=== PATIENT | male | born 1945 | race Caucasian/White ===

== ENCOUNTER → 2021-05-21 14:42 | Outpatient (BNVA) | payer MEDICARE, SELFPAY | PROVIDERS: PCP Internal Medicine; Visit Provider Nurse Practitioner Family | DX: R56.9 Unspecified convulsions (principal); E87.1 Hypo-osmolality and hyponatremia; M54.50 Low back pain, unspecified | CPT/HCPCS: 99202 ==

== ENCOUNTER → 2021-11-26 10:48 | Outpatient (BNVA) | payer MEDICARE, OTHER, SELFPAY | PROVIDERS: PCP Internal Medicine; Visit Provider Nurse Practitioner Family | DX: R56.9 Unspecified convulsions (principal); M54.50 Low back pain, unspecified; E87.1 Hypo-osmolality and hyponatremia | CPT/HCPCS: 99212 ==

== ENCOUNTER → 2022-06-02 10:45 | Outpatient (BNVA) | payer MEDICARE, OTHER, SELFPAY | PROVIDERS: PCP Internal Medicine; Visit Provider Nurse Practitioner Family | DX: M54.50 Low back pain, unspecified (principal); R56.9 Unspecified convulsions | CPT/HCPCS: 99212 ==

== ENCOUNTER 2022-12-02 10:46 | Outpatient (AMB) | payer MEDICARE, OTHER, SELFPAY ==
--- NOTE | 2022-12-02 10:48 | MHC.OFFVIS ---
Intake Vital Signs 12/02/22 10:51 Height 5 ft 8 in Weight 170 lb BMI 25.8 BP 118/82 Blood Pressure Location Rt brachial Position Sitting Pulse 74 Pulse Source Pulse Oximeter Pulse Oximetry (%) 98 Oxygen Delivery Method Room Air Intake Visit Reasons: 6m follow up Intake Note: Patient presents for 6 month follow up. Patient states no issues or concerns today. Allergies primidone [From Mysoline] Allergy (Mild, Verified 12/02/22 10:52) Rash oxycodone [From Percocet] Adverse Reaction (Mild, Verified 12/02/22 10:52) Gastrointestinal Upset Sulfa (Sulfonamide Antibiotics) Adverse Reaction (Mild, Verified 12/02/22 10:52) Gastrointestinal Upset Medication List - Last Reconciled 12/02/22 by ENA Jenkins acetaminophen ER 650 mg PO Q8H PRN amitriptyline 20 mg PO BEDTIME amlodipine 10 mg PO DAILY atorvastatin 20 mg PO DAILY clonazepam 1 mg PO prn seizure lasting > 2 minutes, may repeat x's 1 PRN; 30 days cyanocobalamin (vitamin B-12) (Vitamin B-12) 1,000 mcg PO DAILY fluticasone propionate 50 mcg/actuation sprays intranasal gabapentin 100 mg PO BID levetiracetam 1,500 mg (3 x 500 mg) PO BID 90 days magnesium 250 mg PO DAILY melatonin mg PO .qhs meloxicam 7.5 mg PO DAILY PRN omega 8-nrg-omj-fish oil 120-180-500 mg (Fish Oil) caps PO DAILY omeprazole 20 mg PO DAILY tamsulosin 0.8 mg PO DAILY vitamins A and D 1 cap PO DAILY HPI HPI Comments History of Present Illness Details 77-yr-old male presents for f/u visit. Pt denies any significant interval medical changes. Pt denies any inetrval sieuzre activity. He is compliant w/ Keppra. He does not drive. His low back pain has subsided. He states Gabapentin is helpful. He states the vascular work-up for LLE swelling was non-diagnostic- he has been wearing compression socks which have been helpful. [facility] Medical History (Updated 12/02/22 @ 11:30 by ENA Jenkins) Left leg swelling HTN (hypertension) Depression Asthma Surgical History S/P spinal surgery History of ankle surgery Hx of hand surgery Hx of cervical spine surgery Family History Sister Lung cancer Daughter Asthma Social History Alcohol intake: never Patient Tobacco Use Status: Former Tobacco user Review of Systems Const All systems reviewed & are unremarkable except as noted in HPI and below Physical Exam Vital Signs: Last Vital Signs Pulse 74 12/02/22 10:51 BP 118/82 12/02/22 10:51 Pulse Ox 98 12/02/22 10:51 Oxygen Delivery Method Room Air 12/02/22 10:51 BMI result Body Mass Index 25.8 Const General: cooperative and no acute distress Orientation/consciousness: patient oriented x3 HEENT Head: Yes normocephalic Resp Effort & Inspection: normal respiratory effort and able to speak in complete sentences Neuro Other: Slow to stand, slow steady gait w/ cane General: patient oriented x3 and CN's II-XI intact bilaterally Cognition (Neuro): normal cognition Motor exam (neuro): 5/5 motor strength present throughout Psych Appearance: grossly normal Mental Status: mental status grossly normal Speech and movement: Normal speech and movement present Affect: normal affect Attitude: cooperative Thought process: Normal thought process present Thought content: Normal thought content present Insight: Good insight present (Psych) Judgement: Good judgement present (Psych) Assessment & Plan Assessment & Plan (1) Seizure: Code(s): R56.9 - Unspecified convulsions (2) Low back pain: Code(s): M54.50 - Low back pain, unspecified Plan Continue Keppra 1,500mg bid. Continue Gabapentin Continue Amitriptyline Pt does NOT drive. Monitor low back pain- pt to let us know if any worsening s/s. Will request recent labs from PCP. ? f/u in 11-12 months or sooner prn. Medications: Refilled levetiracetam 1,500 mg (3 x 500 mg) PO BID 90 days 540 tabs 3RF Coding Level of Care Code Est Pt Level 4 (00791) Diagnoses Seizure R56.9 Low back pain M54.50
[2022-12-02 10:51] VITALS: BP 118/82; PULSE 74; O2SAT 98; BMI 25.8
== END 2022-12-02 11:24 | disposition home or self-care (01) ==
PROVIDERS: Visit Provider Nurse Practitioner Family
DX: R56.9 Unspecified convulsions (principal); M54.50 Low back pain, unspecified
CPT/HCPCS: 99214

== ENCOUNTER → 2022-12-02 10:46 | Outpatient (BNVA) | payer MEDICARE, OTHER, SELFPAY | PROVIDERS: Visit Provider Nurse Practitioner Family | DX: M54.50 Low back pain, unspecified (principal); R56.9 Unspecified convulsions | CPT/HCPCS: 99212 ==

== ENCOUNTER 2023-11-10 10:50 | Outpatient (AMB) | payer MEDICARE, OTHER, SELFPAY ==
--- NOTE | 2023-11-10 10:52 | MHC.OFFVIS ---
Vital Signs 11/10/23 11:00 Height 5 ft 8 in Weight 168 lb 6 oz BMI 25.6 BP 110/74 Blood Pressure Location Rt brachial Position Sitting Intake Visit Reasons: 1 yr f/u appt for epilepsy Intake Note: Patient presents for follow up. Allergies primidone [From Mysoline] Allergy (Mild, Verified 11/10/23 11:01) Rash oxycodone [From Percocet] Adverse Reaction (Mild, Verified 11/10/23 11:01) Gastrointestinal Upset Sulfa (Sulfonamide Antibiotics) Adverse Reaction (Mild, Verified 11/10/23 11:01) Gastrointestinal Upset Medication List - Last Reconciled 11/10/23 by ENA Jenkins acetaminophen ER 650 mg PO Q8H PRN amitriptyline 20 mg PO BEDTIME amlodipine 10 mg PO DAILY atorvastatin 20 mg PO DAILY clonazepam 1 mg PO prn seizure lasting > 2 minutes, may repeat x's 1 PRN; 30 days cyanocobalamin (vitamin B-12) (Vitamin B-12) 1,000 mcg PO DAILY fluticasone propionate 50 mcg/actuation sprays intranasal gabapentin 100 mg PO BID levetiracetam 1,500 mg (3 x 500 mg) PO BID 90 days magnesium 250 mg PO DAILY melatonin mg PO .qhs meloxicam 7.5 mg PO DAILY PRN omega 5-zlh-cat-fish oil 120-180-500 mg (Fish Oil) caps PO DAILY omeprazole 20 mg PO DAILY tamsulosin 0.8 mg PO DAILY vitamins A and D 1 cap PO DAILY HPI Comments Details: 78-yr-old female presents for f/u visit. Pt denies any significant interval medical changes. Pt denies any interval seizure activity. He is compliant w/ Keppra. He does not drive. Last CMP- WNL. His low back pain continues but no longer having back pain when getting up form bed. He is trying to exercise/walk regularly- partly as he was informed he was pre-diabetic. Gabapentin is helpful. He has been able to lower his Amitriptyline dose to 10mg qhs. [facility] Medical History Left leg swelling HTN (hypertension) Depression Asthma Surgical History S/P spinal surgery History of ankle surgery Hx of hand surgery Hx of cervical spine surgery Family History Sister Lung cancer Daughter Asthma Social History Alcohol intake: never Patient Tobacco Use Status: Former Tobacco user Physical Exam Vital Signs: Last Vital Signs BP 110/74 11/10/23 11:00 BMI result Body Mass Index 25.6 Const General: cooperative and no acute distress Orientation/consciousness: patient oriented x3 Resp Effort & Inspection: normal respiratory effort and able to speak in complete sentences Neuro Other: Slow to stand, steady gait w/ cane General: patient oriented x3 Cranial nerves: Yes CN's II-XII intact bilaterally Cognition (Neuro): normal cognition Psych Appearance: grossly normal Mental Status: mental status grossly normal Speech and movement: Normal speech and movement present Affect: normal affect Attitude: cooperative Assessment & Plan Assessment & Plan (1) Seizure: Code(s): R56.9 - Unspecified convulsions Category: Medical (2) Hyponatremia: Comment: resolved- off Trileptal Code(s): E87.1 - Hypo-osmolality and hyponatremia Category: Medical (3) Low back pain: Code(s): M54.50 - Low back pain, unspecified Category: Medical Plan Continue Keppra 1,500mg bid. Continue Gabapentin Continue Amitriptyline Will refill Clonazepam 2mg ODT for breakrthough seizure- previous supply . Recheck CBC/CMP- pt may do w/ next scheduled lab orderer from PCP. Pt does NOT drive. Continue regular physical activity as tolerated. Monitor low back pain- pt to let us know if any worsening s/s. f/u in 12 months or sooner prn. Orders: Orders Complete Blood Count Auto Diff Today R56.9 - Unspecified convulsions Comprehensive Met. Panel Today R56.9 - Unspecified convulsions Medications: Changed From amitriptyline 20 mg PO BEDTIME To amitriptyline 10 mg PO BEDTIME Refilled clonazepam 1 mg PO prn seizure lasting > 2 minutes, may repeat x's 1 PRN; 30 days 5 tabs 1RF seizure activity levetiracetam 1,500 mg (3 x 500 mg) PO BID 90 days 540 tabs 3RF Coding Level of Care Code Est Pt Level 4 (24810) Diagnoses Seizure R56.9 Hyponatremia E87.1 Low back pain M54.50
[2023-11-10 11:00] VITALS: BP 110/74; BMI 25.6
== END 2023-11-10 11:55 | disposition home or self-care (01) ==
PROVIDERS: PCP Internal Medicine; Visit Provider Nurse Practitioner Family
DX: R56.9 Unspecified convulsions (principal); E87.1 Hypo-osmolality and hyponatremia; M54.50 Low back pain, unspecified
CPT/HCPCS: 99214

== ENCOUNTER → 2023-11-10 10:50 | Outpatient (BNVA) | payer MEDICARE, OTHER, SELFPAY | PROVIDERS: PCP Internal Medicine; Visit Provider Nurse Practitioner Family | DX: R56.9 Unspecified convulsions (principal); E87.1 Hypo-osmolality and hyponatremia; M54.50 Low back pain, unspecified | CPT/HCPCS: 99212 ==

== ENCOUNTER 2024-11-09 10:45 | Outpatient (AMB) | payer MEDICARE, OTHER, SELFPAY ==
[2024-11-09 10:48] VITALS: BP 120/60; PULSE 74; O2SAT 98; BMI 26.8
--- NOTE | 2024-11-09 10:48 | A.OFFVIS_ITS ---
Vital Signs 11/09/24 10:48 Height 5 ft 8 in Weight 176 lb BMI 26.8 BP 120/60 Blood Pressure Location Rt brachial Position Sitting Pulse 74 Pulse Source Pulse Oximeter Pulse Oximetry (%) 98 Oxygen Delivery Method Room Air Intake Visit Reasons: Follow Up 1yr Intake Note: Patient presents for follow up. 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 Accompanied by: Self / Same As Patient Allergies primidone (From Mysoline) Allergy (Mild, Verified 11/09/24 10:52) Rash oxycodone (From Percocet) Adverse Reaction (Mild, Verified 11/09/24 10:52) Gastrointestinal Upset Sulfa (Sulfonamide Antibiotics) Adverse Reaction (Mild, Verified 11/09/24 10:52) Gastrointestinal Upset Medication List - Last Reconciled 11/09/24 by ENA Jenkins acetaminophen ER 650 mg PO Q8H PRN amitriptyline 10 mg PO BEDTIME amlodipine 10 mg PO DAILY atorvastatin 20 mg PO DAILY clonazepam 1 mg PO prn seizure lasting > 2 minutes, may repeat x's 1 PRN; 30 d ays cyanocobalamin (vitamin B-12) (Vitamin B-12) 1,000 mcg PO DAILY fluticasone propionate 50 mcg/actuation sprays intranasal gabapentin 100 mg PO BID levetiracetam 1,500 mg (3 x 500 mg) PO BID 90 days magnesium 250 mg PO DAILY melatonin mg PO .qhs meloxicam 7.5 mg PO DAILY PRN nicotinamide mononucleotide 500 mg PO BID omega 7-xjx-xgt-fish oil 120-180-500 mg (Fish Oil) caps PO DAILY omeprazole 20 mg PO DAILY tamsulosin 0.8 mg PO DAILY vitamins A and D 1 cap PO DAILY HPI Comments Details: 79-yr-old female presents for follow-up for seizure. 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 He has been started on OTC nicotinamide 500 mg b.i.d. and is scheduled to begin light therapy soon. Pt denies any interval seizure activity. He is compliant with/ Keppra. He does not drive. April 2024 CBC and CMP WNL He reports that if he sits for an extended period, he experiences discomfort in his left calf, and when he stands up, it takes him a few steps before he feels like he can walk fluidly. He has also noticed recurrence of nonradiating low back pain when he gets out of bed in the morning. However, he states that within 30 minutes of moving around, he feels fine. He is trying to walk regularly, but this may be affected by the weather. He last did PT about a year ago. Reports gabapentin continues to be helpful. He reports he is using amitriptyline 10 mg daily at bedtime and melatonin for sleep. He has had chronic sleep issues. Endorses nocturnal voiding 1-2 times per night. He is followed by urology. Denies restless leg symptoms are nocturnal leg cramps. He goes to bed around 11:00 p.m. and wakes up for the day around 4:00 a.m. He states he is overall pretty regimented in his schedule. You may take an occasional daytime nap. He takes 2 cups of coffee earlier in the day. [facility] Medical History Left leg swelling HTN (hypertension) Depression Asthma Surgical History S/P spinal surgery History of ankle surgery Hx of hand surgery Hx of cervical spine surgery Family History Sister Lung cancer Daughter Asthma Social History Alcohol intake: never Patient Tobacco Use Status: Former Tobacco user Physical Exam Vital Signs: Last Vital Signs Pulse 74 11/09/24 10:48 BP 120/60 11/09/24 10:48 Pulse Ox 98 11/09/24 10:48 Oxygen Delivery Method Room Air 11/09/24 10:48 BMI result Body Mass Index 26.8 Const General: cooperative and no acute distress Orientation/consciousness: patient oriented x3 Resp Effort & Inspection: normal respiratory effort and able to speak in complete sentences Neuro Other: Expression intact Bilateral, more so on the left, the patient reports this is due to an old injury and surgical repair. Fine finger movements, poor fluidity, bilaterally. Foot taps decreased fluidity, more so on the left BUE tone, mild Stands slowly, slight stoop, LLE slightly decreased dorsiflexion, and foot skuffs the ground at times, though overall steady with a cane. General: patient oriented x3 Cranial nerves: Yes CN's II-XII intact bilaterally Cognition (Neuro): normal cognition Motor exam (neuro): 5/5 motor strength present throughout Psych Appearance: grossly normal Mental Status: mental status grossly normal Speech and movement: Normal speech and movement present Affect: normal affect Attitude: cooperative Assessment & Plan Assessment & Plan (1) Seizure: Code(s): R56.9 - Unspecified convulsions Category: Medical (2) Low back pain: Code(s): M54.50 - Low back pain, unspecified Category: Medical Qualifiers: Chronicity: chronic Back pain laterality: unspecified Sciatica presence: with sciatica Sciatica laterality: sciatica of right side Qualified Code(s): M54.41 - Lumbago with sciatica, right side; G89.29 - Other chronic pain (3) Sleep difficulties: Code(s): G47.9 - Sleep disorder, unspecified Category: Medical Plan For seizure: Continue Keppra 1,500mg bid. Continue Gabapentin Continue Amitriptyline Continue Clonazepam 2mg ODT for breakrthough seizure- previous supply . Recheck CBC/CMP- with next scheduled lab draws due in Mar 2025. Pt does NOT drive. For gait difficulties and low back pain: Continue regular physical activity as tolerated. The patient was encouraged to try doing foot tabs before standing from a sitting position and to perform mild foot movements and stretching before getting out of bed in the morning to reduce stiffness and improve gait fluidity. Patient encouraged to let us know if any of these symptoms worsen, we can refer the patient back to PT or consider other workup/treatment interventions. For Sleep: Continue amitriptyline 10 mg and melatonin daily at bedtime. Continue to adhere to the scheduled wake-up and bedtime. Advised to avoid late-day naps. f/u in 12 months or sooner prn. Medications: Refilled levetiracetam 1,500 mg (3 x 500 mg) PO BID 540 tabs 3RF 90 days Coding Level of Care Code Est Pt Level 4 (57545) Diagnoses Seizure R56.9 Chronic low back pain with right-sided sciatica, unspecified back pain laterality M54.41; G89.29 Chronicity: chronic Back pain laterality: unspecified Sciatica presence: with sciatica Sciatica laterality: sciatica of right side Sleep difficulties G47.9
== END 2024-11-09 11:40 | disposition home or self-care (01) ==
LOC: HO.HSMS 10:46
PROVIDERS: PCP Internal Medicine; Visit Provider Nurse Practitioner Family
DX: R56.9 Unspecified convulsions (principal); M54.41 Lumbago with sciatica, right side; G89.29 Other chronic pain; G47.9 Sleep disorder, unspecified
CPT/HCPCS: 99214

== ENCOUNTER → 2024-11-09 10:45 | Outpatient (BNVA) | payer MEDICARE, OTHER, SELFPAY | PROVIDERS: PCP Internal Medicine; Visit Provider Nurse Practitioner Family | DX: R56.9 Unspecified convulsions (principal); G47.9 Sleep disorder, unspecified; M54.41 Lumbago with sciatica, right side; G89.29 Other chronic pain; Z79.899 Other long term (current) drug therapy | CPT/HCPCS: 99212 ==